=== PATIENT | female | born 1975 | race Caucasian/White ===

== ENCOUNTER → 2018-01-07 | Outpatient (CLI) | payer BC ==
[~2018-01-07] MED LIST: ACET-789 PO; ACYC400T PO; ACYSUS PO; ASPI-816 PO; ATOR10TA66 PO; CHOL200041 PO; CITA20TA4 PO; CRANBERRY + VI1 EACH PO; DESV50TA PO; Docusate Sodium PO; FERR-57 PO; FRS325T PO; GABA-488 PO; Hydrocodone Bit/Acetaminophen PO; IBP600T1 PO; Ibuprofen PO; LVT.1T PO; ONDN4T PO; PREN1TAB39 PO; SELE200T11 PO; SERT25TA PO; Simethicone PO; VENL150T4 PO
--- NOTE | 2018-01-07 12:46 | Diagnostic Imaging Report ---
INDICATION: Right foot pain. Time of exam 12:50 PM 3 views of the right foot were obtained. The metatarsals are intact. No periosteal reaction or stress reaction is seen. Phalanges appear intact. Midfoot and hindfoot are unremarkable. No calcaneal spur is seen. IMPRESSION: No acute bony abnormality is detected. Report was faxed to office Tabitha Walls, nurse practitioner by drew at 12:44p.m. Dictated by: Dictated on workstation # [id number]
== END ==
LOC: RAD 11:20
PROVIDERS: ATTEND Nurse Practitioner Family
DX: M79.671 Pain in right foot (principal)
CPT/HCPCS: 73630

== ENCOUNTER → 2018-02-22 | Outpatient (CLI) | payer BC ==
--- NOTE | 2018-02-22 13:52 | Diagnostic Imaging Report ---
INDICATION: Routine screening. COMPARISON: No prior mammograms are available for comparison. This is a baseline study. TECHNIQUE: 2D and 3D bilateral screening mammography was performed with CAD. FINDINGS: Both breasts are heterogeneously dense, limiting the sensitivity of mammography. The right breast is unremarkable. There is a focal density in the central left breast on the CC view at the nipple line. There is also a density appearing posteriorly at the nipple line on MLO view, best seen on tomographic image 13 of the MLO view. Additional views are recommended. No suspicious calcifications are seen. The axillae are unremarkable. IMPRESSION: Left breast densities. Additional views are recommended for further evaluation. ACR BI-RADS Category 0: Incomplete. (Needs additional imaging evaluation). Result letter will be mailed to the patient. Note: At least 10% of breast cancer is not imaged by mammography. Dictated by: Dictated on workstation # [id number]
== END ==
LOC: RAD 09:17
PROVIDERS: ATTEND Family Medicine
DX: Z12.31 Encounter for screening mammogram for malignant neoplasm of breast (principal); R92.8 Other abnormal and inconclusive findings on diagnostic imaging of breast
CPT/HCPCS: 77067

== ENCOUNTER → 2018-03-16 | Outpatient (CLI) | payer BC ==
--- NOTE | 2018-03-16 19:07 | Diagnostic Imaging Report ---
INDICATION: Left breast density. Patient presents for additional views. COMPARISON: Correlation is made with recent screening study from 02/22/2018. TECHNIQUE: Unilateral left 2D and 3D diagnostic mammography was performed including conventional 90 degree lateral view as well as spot compression CC and ML views. The current study was also evaluated with a computer-aided detection (CAD) system. FINDINGS: There is some mild residual nodularity in the central left breast on the CC view just lateral to the nipple line. This appears to be slightly superiorly located on the tomographic images. No definite corresponding density on the ML or spot compression ML views is seen. No suspicious calcifications are identified. IMPRESSION: Mild residual nodularity in the left breast on the CC view, 8 cm from the nipple. Further evaluation of the upper-outer left breast with ultrasound is recommended and will be performed today. ACR BI-RADS Category 0: Incomplete. (Needs additional imaging evaluation). Result letter will be mailed to the patient. Note: At least 10% of breast cancer is not imaged by mammography. Dictated by: Dictated on workstation # [id number]
--- NOTE | 2018-03-16 19:20 | Diagnostic Imaging Report ---
INDICATION: Left breast density. This study is performed for further evaluation. Correlation is made with diagnostic mammogram from earlier the same day and screening mammogram from 02/22/2018. FINDINGS: Sonographic interrogation of the left breast from 12 to 3 o'clock was performed. There is a tiny cyst at the 2 o'clock location 8 cm from the nipple approximately 2 mm x 3 mm in size. No solid mass is seen. No other sonographic abnormality is seen. IMPRESSION: Small cyst at the 2 o'clock location in the left breast 8 cm from the nipple. It is unlikely this accounts for the density noted mammographically. Mammographic density most likely represented superimposed tissue. The patient may return to routine annual screening mammography. ACR BI-RADS Category 2: Benign findings. Dictated by: Dictated on workstation # [id number]
== END ==
LOC: RAD 13:35
PROVIDERS: ATTEND Family Medicine
DX: N60.02 Solitary cyst of left breast (principal)
CPT/HCPCS: 76642

== ENCOUNTER → 2019-02-27 | Outpatient (CLI) | payer BC, MEDICAID ==
--- NOTE | 2019-02-27 08:52 | Diagnostic Imaging Report ---
INDICATION: Routine screening. COMPARISON: 02/22/2018. TECHNIQUE: 2D and 3D bilateral screening mammography was performed with CAD. FINDINGS: Both breasts are heterogeneously dense, limiting the sensitivity of mammography. The parenchymal pattern is stable. No mass or malignant appearing microcalcifications are seen. The axillae are unremarkable. IMPRESSION: No mammographic features suspicious for malignancy are identified. ACR BI-RADS Category 1: Negative. Result letter will be mailed to the patient. Note: At least 10% of breast cancer is not imaged by mammography. Dictated by: Dictated on workstation # [id number]
== END ==
LOC: RAD 07:55
PROVIDERS: ATTEND Family Medicine
DX: Z12.31 Encounter for screening mammogram for malignant neoplasm of breast (principal)
CPT/HCPCS: 77067

== ENCOUNTER → 2019-09-28 | Outpatient (CLI) | payer MEDICAID ==
--- NOTE | 2019-09-28 14:58 | Diagnostic Imaging Report ---
PROCEDURE: US Non-OB pelvis comp/trans. TECHNIQUE: Multiple realtime grayscale images were obtained of the pelvis in various projections, endovaginally. Transabdominal imaging was also performed. INDICATION: Pelvic pain. Patient had prior left oophorectomy approximately 20 years ago. FINDINGS: Uterus is anteverted, measuring 7.6 x 4.1 x 5.3 cm. Endometrium is 8 mm in thickness. No myometrial mass is detected. Left ovary is surgically absent. Right ovary measures 4.2 x 2.2 x 2.8 cm. There is a cyst in the right ovary of approximately 1.9 cm in diameter. Arterial blood flow was somewhat difficult to detect with Doppler; however, venous flow appears unremarkable. The ovary, itself, does not appear to be significantly enlarged or have abnormal morphologic appearance. No free fluid is seen. IMPRESSION: Approximately 1.9 cm right ovarian cyst. Doppler evaluation of the right ovary is somewhat limited but no significant abnormal appearance of the right ovary is seen. Dictated by: Dictated on workstation # [id number]
== END ==
LOC: RAD 11:32
PROVIDERS: ATTEND Family Medicine
DX: N83.201 Unspecified ovarian cyst, right side (principal)
CPT/HCPCS: 76830; 76856

== ENCOUNTER → 2019-10-09 | Outpatient (CLI) | payer MEDICAID | LOC: RAD 12:20 | PROVIDERS: ATTEND Nurse Practitioner Family | DX: Z53.9 Procedure and treatment not carried out, unspecified reason (principal) ==

== ENCOUNTER → 2019-12-07 | Outpatient (CLI) | payer MEDICAID ==
--- NOTE | 2019-12-07 16:05 | Diagnostic Imaging Report ---
PROCEDURE: US Renal Bilateral. TECHNIQUE: Multiple real-time grayscale images were obtained over the kidneys in various projections bilaterally. INDICATION: Renal insufficiency. FINDINGS: Right kidney measures 9.2 x 5.2 x 5.6 cm and the left kidney measures 10.7 x 4.6 x 4.9 cm. Cortical thickness and echogenicity are normal. No calculi are seen. There is no hydronephrosis. Bilateral ureteral jets are visualized. IMPRESSION: Unremarkable renal ultrasound. Dictated by: Dictated on workstation # [id number]
== END ==
LOC: RAD 14:22
PROVIDERS: ATTEND Family Medicine
DX: N28.9 Disorder of kidney and ureter, unspecified (principal)
CPT/HCPCS: 76770

== ENCOUNTER → 2020-02-29 | Outpatient (CLI) | payer MEDICAID ==
--- NOTE | 2020-02-29 17:34 | Diagnostic Imaging Report ---
INDICATION: Screening. At this time there are no current complaints. EXAMINATION: Bilateral digital screening mammogram with CAD. 3D tomographic images were obtained and reviewed. The current study was also evaluated with a Computer Aided Detection (CAD) system. COMPARISON: This study was compared to the prior exams of 02/27/2019 and 02/22/2018. FINDINGS: The fibroglandular tissue in both breasts is heterogeneously dense. This does limit the sensitivity of this exam. Overall, there does not appear to have been any significant change when compared to the prior study. No primary or secondary sign of malignancy is noted. IMPRESSION: There is no radiographic evidence for malignancy. ACR BI-RADS Category 1: Negative. Result letter will be mailed to the patient. Note: At least 10% of breast cancer is not imaged by mammography. Dictated by: Dictated on workstation # [id number]
== END ==
LOC: RAD 11:15
PROVIDERS: ATTEND Family Medicine
DX: Z12.31 Encounter for screening mammogram for malignant neoplasm of breast (principal)
CPT/HCPCS: 77063; 77067

== ENCOUNTER → 2021-01-23 | Outpatient (CLI) | payer MEDICAID ==
--- NOTE | 2021-01-23 15:16 | Diagnostic Imaging Report ---
INDICATION: Left ankle pain. COMPARISON: None FINDINGS: 3 radiographic views of the left ankle were obtained. There is small extraosseous calcification adjacent to the distal tip of the medial malleolus. This may be on the basis of avulsion fracture, but is age-indeterminate. No other acute osseous abnormality is seen. Joint spaces are intact. No unexpected radiopaque foreign bodies are identified. IMPRESSION: 1. Possible avulsion injury to the medial malleolus. Correlation with point tenderness is recommended. Dictated by: Dictated on workstation # [id number]
== END ==
LOC: RAD
PROVIDERS: ATTEND Family Medicine
DX: M25.572 Pain in left ankle and joints of left foot (principal)
CPT/HCPCS: 73610

== ENCOUNTER → 2021-03-03 | Outpatient (CLI) | payer MEDICAID ==
--- NOTE | 2021-03-03 12:54 | Diagnostic Imaging Report ---
INDICATION: Routine screening. COMPARISON: 02/29/2020 and 02/27/2019. TECHNIQUE: 2D and 3D bilateral screening mammography was performed with CAD. FINDINGS: Both breasts are heterogeneously dense, limiting the sensitivity of mammography. The overall parenchymal pattern is stable. No mass or malignant-appearing microcalcifications are seen. The axillae are unremarkable. IMPRESSION: No mammographic features suspicious for malignancy are identified. ACR BI-RADS Category 1: Negative. Result letter will be mailed to the patient. Note: At least 10% of breast cancer is not imaged by mammography. Dictated by: Dictated on workstation # [id number]
== END ==
LOC: RAD 10:30
PROVIDERS: ATTEND Family Medicine
DX: Z12.31 Encounter for screening mammogram for malignant neoplasm of breast (principal)
CPT/HCPCS: 77063; 77067

== ENCOUNTER 2022-04-09 14:00 | Emergency (ER) | payer MEDICAID ==
[~2022-04-09] VITALS: Ht 160 cm; Wt 90.7 kg
[2022-04-09 15:42] LABS: BASOPHILS # (AUTO) 0.1 10^3/uL (0.0-0.1); BASOPHILS % (AUTO) 1 % (0-10); HEMOGLOBIN 13.3 g/dL (11.5-16.0); MONOCYTES # (AUTO) 0.5 10^3/uL (0.0-1.0)
[2022-04-09 15:44] LABS: EOSINOPHILS # (AUTO) 0.1 10^3/uL (0.0-0.3); EOSINOPHILS % (AUTO) 1 % (0-10); HEMATOCRIT 40 % (35-52); LYMPHOCYTES # (AUTO) 3.5 10^3/uL (1.0-4.0); LYMPHOCYTES % (AUTO) 38 % (12-44); MEAN CORPUSCULAR HEMOGLOBIN 31 pg (25-34); MEAN CORPUSCULAR HGB CONC 34 g/dL (32-36); MEAN CORPUSCULAR VOLUME 93 fL (80-99); MEAN PLATELET VOLUME 9.6 fL (9.0-12.2); MONOCYTES % (AUTO) 5 % (0-12); NEUTROPHILS # (AUTO) 5.2 10^3/uL (1.8-7.8); NEUTROPHILS % (AUTO) 55 % (42-75); PLATELET COUNT 484 10^3/uL (130-400); WHITE BLOOD COUNT 9.4 10^3/uL (4.3-11.0)
[2022-04-09 15:46] LABS: CHLORIDE 107 MMOL/L (98-107); POTASSIUM 3.5 MMOL/L (3.6-5.0); SODIUM 139 MMOL/L (135-145)
[2022-04-09 15:47] LABS: CALCIUM 10.1 MG/DL (8.5-10.1)
[2022-04-09 15:48] LABS: GLUCOSE 149 MG/DL (70-105); TOTAL PROTEIN 8.5 GM/DL (6.4-8.2)
[2022-04-09 15:50] LABS: BILIRUBIN,TOTAL 0.2 MG/DL (0.1-1.0); CARBON DIOXIDE 24 MMOL/L (21-32)
[2022-04-09 15:52] LABS: ALKALINE PHOSPHATASE 45 U/L (40-136); CREATININE SERUM 1.35 MG/DL (0.60-1.30); GFR ESTIMATED 50
[2022-04-09 15:53] LABS: BUN/CREATININE RATIO 10
[2022-04-09 15:55] LABS: ALANINE AMINOTRANSFERASE 29 U/L (0-55)
--- NOTE | 2022-04-09 16:32 | Diagnostic Imaging Report ---
INDICATION: Weakness, migraines, and tremors. TECHNIQUE: Multiple contiguous axial images were obtained through the brain without the use of intravenous contrast. Auto Exposure Controls were utilized during the CT exam to meet ALARA standards for radiation dose reduction. Comparison made with brain MRI of 11/09/[address] of 06/28/2013. FINDINGS: There is again noted to be a small hyperdense cyst in the anterior portion of the third ventricle, compatible with colloid cyst. This measured about 6 mm. There does not appear to be evidence of ventricular dilatation at this time. Ventricles are stable compared to the previous MRI study. There is no subdural or epidural collection. There is no acute intraparenchymal abnormality of the brain. There is a persistent cavum septum pellucidum. Calvarial windows are unremarkable. IMPRESSION: No acute intracranial abnormality. Small probable colloid cyst in the third ventricle anteriorly with no significant ventricular dilatation. The findings have not changed compared to previous CT and MRI studies. Dictated by: Dictated on workstation # [id number]
--- NOTE | 2022-04-09 17:12 | ED General ---
General Chief Complaint: Head/Cervical Problems Stated Complaint: MIGRAINE | NAUSEA | HX OF COLLOID CYST Nursing Triage Note: PT PRESENTS TO ED VIA POV FROM WORK WITH COMPLAINTS OF MIGRAINE, DIFFICULTY WITH AMBULATION, AND BODY TREMORS. PT STATES SHE WOKE UP WITH THIS AM WITH A LORA AND IT PROGRESSIVELY GOT WORSE THROUGHOUT THE DAY. PT REPORTS NAUSEA. PT STATES SHE HAD ACCUPUNCTURE AND NECK ADJUSTMENTS AT WORK WHEN SHE STARTED GETTING WORSE BUT HAS NOT FELT IMPROVEMENT. PT REPORTS HER S/S SEEM TO RESOLVE WHEN SHE IS SITTING OR LAYING DOWN BUT WORSE WITH AMBULATION. Source of Information: Patient Exam Limitations: No Limitations (MIGUEL STONE APRN) History of Present Illness Date Seen by Provider: Apr 09, 2022 Time Seen by Provider: 17:05 Initial Comments Patient is a 46-year-old female who presents to the emergency department for evaluation of a constellation of symptoms including migraine, difficulty ambulating, diffuse body shaking, and bilateral lower extremity weakness. She states she has had some of the symptoms for a few weeks but others began this morning. She states she has also had some nausea without emesis. She currently works at a chiropractor's office. She states she was adjusted twice today at the office and also had some acupuncture done. This did not improve the symptoms. She states her shakiness and weakness seems to be worse when she is standing or walking. She has not fallen. She denies any laterality to her symptoms. Denies any vision loss, facial asymmetry, difficulty speaking or swallowing, drooling. 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 She states she does have an appointment with her PCP next week as well as an appointment with her neurologist early next year. These appointments were made in the last few weeks when the symptoms have been present. She has not seen a medical provider outside of her chiropractor for the symptoms since they began. She denies any fever or flulike symptoms. She denies any chest pain or significant shortness of air. No recent trauma. (MIGUEL STONE APRN) Allergies and Home Medications Allergies Coded Allergies: penicillin G (Verified Allergy, Unknown, 09/02/07) Patient Home Medication List Home Medication List Reviewed: Yes (MIGUEL STONE APRN) Acyclovir (Zovirax) 400 Mg Tablet, 400 MG PO DAILY, (Reported) Entered as Reported by: VIGNESH OLIVO on 06/28/13928 Desvenlafaxine Succinate (Pristiq) 50 Mg Tab.sr.24h, 50 MG PO EVERY OTHER DAY, (Reported) Entered as Reported by: KAITLYNN ROSA on 03/15/142013 Ferrous Sulfate (Feosol Tab) 325 Mg Tab, 325 MG PO BID WITH MEALS Prescribed by: SHIRA LARA on 03/16/14949 Levothyroxine Sodium (Levothyroxine 100 Mcg Tab) 100 Mcg Tablet, 100 MCG PO DAILY, (Reported) Entered as Reported by: VIGNESH OLIVO on 06/28/13928 Vits W-Ca,Fe,Fa(<1MG) () 1 Each Tablet, 1 EACH PO DAILY, (Reported) Entered as Reported by: IRA JOSEPH on 02/25/112206 Sertraline Hcl (Zoloft) 25 Mg Tablet, 50 MG PO DAILY, (Reported) Entered as Reported by: KAITLYNN ROSA on 03/15/142013 Vit C/Vitamin E Acetate/Cranb (Cranberry + Vit C Softgel) 1 Each Capsule, 1 EACH PO DAILY, (Reported) Entered as Reported by: IRA JOSEPH on 02/25/112206 [Docusate Sodium] 100 MG CAP, 100 MG PO BID PRN for CONSTIPATION Prescribed by: SHIRA LARA on 03/16/14 09 [Hydrocodone Bit/Acetaminophen] 1 EA TABLET, 1 EA PO Q6H PRN for PAIN Prescribed by: SHIRA LARA on 03/16/1450 [Ibuprofen] 600 MG TAB, 600 MG PO Q6H PRN for PAIN Prescribed by: SHIRA LARA on 03/16/14 0950 [Simethicone] 80 MG CHEW, 40 MG PO TID PRN for INDIGESTION Prescribed by: SHIRA LARA on 03/16/14949 Review of Systems Review of Systems Constitutional: see HPI, weakness EENTM: no symptoms reported Respiratory: no symptoms reported Cardiovascular: no symptoms reported Gastrointestinal: see HPI, nausea Genitourinary: no symptoms reported Musculoskeletal: see HPI, muscle weakness Skin: no symptoms reported Psychiatric/Neurological: See HPI, Headache, Weakness Hematologic/Lymphatic: No Symptoms Reported Immunological/Allergic: no symptoms reported (MIGUEL STONE APRN) Past Ahsrimt-Blkmdr-Clicqp Hx Patient Social History Tobacco Use?: No Substance use?: No Alcohol Use?: Yes Alcohol Frequency: Daily Pt feels they are or have been: No (MIGUEL STONE APRN) Immunizations Up To Date First/Initial COVID19 Vaccinat: YES Second COVID19 Vaccination Dylan: YES COVID19 Vaccine Wealth Management Advisor: PFIZER (MIGUEL STONE APRN) Past Medical History Surgery/Hospitalization HX: 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 oz. 84.196716cl; 35.00 BMI Method:Stated General Appearance: No Apparent Distress, WD/WN HEENT: PERRL/EOMI, TMs Normal, Normal ENT Inspection, Pharynx Normal Neck: Normal Inspection, Non Tender, Supple Respiratory: Chest Non Tender, Lungs Clear, Normal Breath Sounds, No Respiratory Distress Cardiovascular: Normal Peripheral Pulses Gastrointestinal: Non Tender, Soft Extremity: Non Tender, No Calf Tenderness Neurologic/Psychiatric: Oriented x3, No Motor/Sensory Deficits, Normal Mood/Affect, digital marketing officer II-XII Norm as Tested Skin: Normal Color, Warm/Dry (MIGUEL STONE APRN) Progress/Results/Core Measures Suspected Sepsis SIRS Temperature: Pulse: 107 Respiratory Rate: 18 Laboratory Tests 04/09/22 15:25: White Blood Count 9.4 Blood Pressure 162 /83 Mean: 109 Laboratory Tests 04/09/22 15:25: Creatinine 1.35H, Platelet Count 484H, Total Bilirubin 0.2 (MIGUEL STONE APRN) Results/Orders Lab Results Laboratory Tests Test 04/09/22 15:25 Range/Units White Blood Count 9.4 4.3-11.0 10^3/uL Red Blood Count 4.25 3.80-5.11 10^6/uL Hemoglobin 13.3 11.5-16.0 g/dL Hematocrit 40 35-52 % Mean Corpuscular Volume 93 80-99 fL Mean Corpuscular Hemoglobin 31 25-34 pg Mean Corpuscular Hemoglobin Concent 34 32-36 g/dL Red Cell Distribution Width 13.3 10.0-14.5 % Platelet Count 484 H 130-400 10^3/uL Mean Platelet Volume 9.6 9.0-12.2 fL Immature Granulocyte % (Auto) 0 % Neutrophils (%) (Auto) 55 42-75 % Lymphocytes (%) (Auto) 38 12-44 % Monocytes (%) (Auto) 5 0-12 % Eosinophils (%) (Auto) 1 0-10 % Basophils (%) (Auto) 1 0-10 % Neutrophils # (Auto) 5.2 1.8-7.8 10^3/uL Lymphocytes # (Auto) 3.5 1.0-4.0 10^3/uL Monocytes # (Auto) 0.5 0.0-1.0 10^3/uL Eosinophils # (Auto) 0.1 0.0-0.3 10^3/uL Basophils # (Auto) 0.1 0.0-0.1 10^3/uL Immature Granulocyte # (Auto) 0.0 0.0-0.1 10^3/uL Percent Immature Platelet Fraction 1.9 0.0-7.6 % Sodium Level 139 135-145 MMOL/L Potassium Level 3.5 L 3.6-5.0 MMOL/L Chloride Level 107 98-107 MMOL/L Carbon Dioxide Level 24 21-32 MMOL/L Anion Gap 8 5-14 MMOL/L Blood Urea Nitrogen 14 7-18 MG/DL Creatinine 1.35 H 0.60-1.30 MG/DL Estimat Glomerular Filtration Rate 50 BUN/Creatinine Ratio 10 Glucose Level 149 H 70-105 MG/DL Calcium Level 10.1 8.5-10.1 MG/DL Corrected Calcium 8.5-10.1 MG/DL Total Bilirubin 0.2 0.1-1.0 MG/DL Aspartate Amino Transf (AST/SGOT) 28 5-34 U/L Alanine Aminotransferase (ALT/SGPT) 29 0-55 U/L Alkaline Phosphatase 45 40-136 U/L Total Protein 8.5 H 6.4-8.2 GM/DL Albumin 5.0 H 3.2-4.5 GM/DL Thyroid Stimulating Hormone (TSH) 2.70 0.35-4.94 UIU/ML (ANTIONE ROCKWELL MD) Vital Signs/I&O 04/09/22 04/09/22 14:09 17:17 Temp 36.7 Pulse 107 Resp 18 B/P (MAP) 162/83 (109) 117/78 (ANTIONE ROCKWELL MD) Vital Signs/I&O Capillary Refill : Less Than 3 Seconds (MIGUEL STONE APRN) Blood Pressure Mean: 109 Progress Note : Progress Note Patient is nontoxic and well-hydrated on exam. No focal neurologic deficits appreciated. Patient was ambulatory to the exam room without issue. NIH is 0. She is able to answer all questions appropriately. She is awake alert and oriented x4. Extraocular movements are intact. Pupils reground reactive to light. Cranial nerves II through XII grossly intact. No significant asymmetrical weakness noted in any of the 4 extremities. No significant paresthesias or numbness appreciated. Patient presented with an outpatient order for a head CT with and without contrast filled out by her chiropractor. I explained that a contrasted head CT is not indicated in this case but that a noncontrasted head CT would be appropriate to rule out any intracranial abnormality including an enlargement of her colloid cyst. I explained that we sometimes will do a CTA of the head neck if we are concerned of any vessel stenosis or occlusion but at this time there are no symptoms that are concerning for that process. Laboratory evaluation is very unremarkable. Specifically there is no significant metabolic derangements. No elevated white blood cell count that would raise suspicion for infectious process. EKG obtained which is without acute ischemic change or arrhythmia. CT of the head shows third ventricular cyst of unchanged size from prior studies approximately 7 years ago. Had a lengthy discussion with patient that there appears to be no acutely emergent process mediating her symptoms. Patient did seem to have some frustration at the lack of definitive diagnosis. I explained that close follow- up with her PCP and/or neurologist would likely help in giving her a more definite diagnosis. I also encouraged her to return to the emergency department for any urgent symptomology. Patient verbalized understanding. (MIGUEL STONE APRN) Departure Impression Primary Impression: Lower extremity weakness Qualified Codes: R29.898 - Other symptoms and signs involving the musculoskeletal system Additional Impressions: Near syncope Colloid cyst of third ventricle Disposition: HOME, SELF-CARE Condition: Stable Departure-Patient Inst. Decision time for Depature: 17:00 (MIGUEL STONE APRN) Referrals: SALVADOR CONTRERAS DO (PCP/Family) Primary Care Physician Patient Instructions: Weakness ED ATTENDING PHYSICIAN NOTE: I was physically present as attending physician in the emergency department during the care of this patient, but I was not directly involved in the decision making or delivery of care for this patient. (ANTIONE ROCKWELL MD) Copy Copies To 1: SALVADOR CONTRERAS JASON APRN Apr 09, 2022 17:12 ANTIONE ROCKWELL MD Apr 11, 2022 07:25
[2022-04-09 17:17] VITALS: BP 117/78
== END 2022-04-09 17:19 | disposition home or self-care (01) ==
LOC: EDUNIT# 14:00 → ER 14:04
DX: R53.1 Weakness (principal); R55 Syncope and collapse; G93.0 Cerebral cysts
CPT/HCPCS: 36415; 70450; 80053; 84443; 85025; 93005

== ENCOUNTER → 2022-04-22 | Outpatient (CLI) | payer MEDICAID ==
--- NOTE | 2022-04-22 14:56 | Diagnostic Imaging Report ---
PROCEDURE: MR imaging of the brain without contrast. TECHNIQUE: Multiplanar, multisequence MR imaging of the brain was performed without contrast. INDICATION: Leg and hand tremors as well as headache and face tingling. COMPARISON: Correlation is made with prior MRI from 11/09/2015. FINDINGS: Ventricular size and sulcal pattern appears stable. There is no diffusion restriction. The normal expected flow-voids within the carotid siphons are seen. Small colloid cyst appears stable. There is no evidence of acute intracranial hemorrhage. Corpus callosum is unremarkable. The sella and parasellar structures are unremarkable. IMPRESSION: Stable noncontrast MRI of the brain. No acute feature is detected. Dictated by: Dictated on workstation # [id number]
--- NOTE | 2022-04-22 20:16 | Diagnostic Imaging Report ---
CLINICAL INDICATION: Patient having leg and hand tremors. Patient has headaches and face tingles, memory loss. EXAM: MRI of the cervical spine performed without IV contrast. Sequences include sagittal T2, sagittal T1, sagittal T2 fat-sat, and axial T2. COMPARISON: MRI of the cervical spine without contrast dated 11/09/2015. FINDINGS: There is no acute cervical spine fracture or dislocation. There is no significant Modic degenerative signal changes. Limited visualization of posterior fossa is unremarkable. Cervical spinal cord has normal cord caliber with no abnormal signal. There is no significant paraspinal soft tissue abnormality. C1-C2: There are degenerative spurs involving the atlantoodontoid interval anteriorly. There is no significant central canal stenosis. C2-C3: Unremarkable. C3-C4: There is development of small anterior disk bulge. There is no significant central spinal canal or neural foramen narrowing. C4-C5: There is progression of a small anterior disk bulge. There is no significant central spinal canal or neural foramen narrowing. C5-C6: There is interval progression of a mild diffuse disk bulge. There is interval progression of mild central canal narrowing. There is no significant neural foramen narrowing. C6-C7: There is interval progression of a small posterior disk extrusion/herniation. There is progression of minimal central canal narrowing. There is no significant neural foramen narrowing. C7-T1: Unremarkable. IMPRESSION: 1: There is no acute cervical spine fracture or dislocation. 2: There is slight progression of cervical spine degenerative disease, as described above. There is no significant central canal or neural foramen narrowing. Dictated by: Dictated on workstation # [id number]
--- NOTE | 2022-04-22 21:58 | Diagnostic Imaging Report ---
INDICATION: Routine screening. COMPARISON: Prior mammograms from 03/03/2021 and 02/29/2020. EXAMINATION: 2D and 3D bilateral screening mammography was performed with CAD. The current study was also evaluated with a Computer Aided Detection (CAD) system. FINDINGS: Both breasts are heterogeneously dense, limiting the sensitivity of mammography. The parenchymal pattern appears stable. No mass or malignant-appearing microcalcifications are seen. Axillae are unremarkable. IMPRESSION: No mammographic features suspicious for malignancy are identified. ACR BI-RADS Category 1: Negative. Result letter will be mailed to the patient. Note: At least 10% of breast cancer is not imaged by mammography. Dictated by: Dictated on workstation # [id number]
== END ==
LOC: RAD 14:00
PROVIDERS: ATTEND Family Medicine
DX: Z12.31 Encounter for screening mammogram for malignant neoplasm of breast (principal); M48.02 Spinal stenosis, cervical region; M50.21 Other cervical disc displacement, high cervical region; M47.812 Spondylosis without myelopathy or radiculopathy, cervical region; R25.1 Tremor, unspecified; R26.9 Unspecified abnormalities of gait and mobility; R20.0 Anesthesia of skin; G51.4 Facial myokymia; R41.3 Other amnesia
CPT/HCPCS: 70551; 72141; 77063; 77067

== ENCOUNTER 2022-08-20 19:23 | Outpatient (CLI) | payer MEDICAID | END 2022-08-21 06:29 | disposition home or self-care (01) | LOC: SLEEP 19:23 | PROVIDERS: ATTEND Psychiatry & Neurology Neurology | DX: G47.33 Obstructive sleep apnea (adult) (pediatric) (principal); G47.10 Hypersomnia, unspecified; I10 Essential (primary) hypertension; R06.83 Snoring; F39 Unspecified mood [affective] disorder; R51.9 Headache, unspecified | CPT/HCPCS: 95810 ==

== ENCOUNTER 2023-02-03 05:37 | Outpatient (CLI) | payer MEDICAID ==
[~2023-02-03] VITALS: Ht 162.6 cm; Wt 90.7 kg
[2023-02-03] MEDS ORDERED: FENO134C21 PO (11:58)
[2023-02-03] MEDS ORDERED: OMEG100032 PO (11:58)
[2023-02-03] MEDS ORDERED: LEVO137C4 PO (11:58)
[2023-02-03] MEDS ORDERED: TOPI200T8 PO (11:58)
[2023-02-03] MEDS ORDERED: MAGN400T39 PO (11:58)
[2023-02-03] MEDS ORDERED: BREX3TAB PO (11:58)
[2023-02-03] MEDS ORDERED: AMIT50TA3 PO (11:58)
[2023-02-03] MEDS ORDERED: PANT40TA52 PO (11:58)
== END 2023-02-03 12:03 | disposition home or self-care (01) ==
LOC: PREOP 05:37
PROVIDERS: ATTEND Surgery
DX: Z01.818 Encounter for other preprocedural examination (principal)

== ENCOUNTER 2023-02-10 14:53 | Outpatient (RCR) | payer MEDICAID ==
[~2023-02-10 14:53] MED LIST changes: +AMIT50TA3 PO; +BREX3TAB PO; +FENO134C21 PO; +LEVO137C4 PO; +MAGN400T39 PO; +OMEG100032 PO; +PANT40TA52 PO; +TOPI200T8 PO
[2023-02-10 16:23] LABS: BASOPHILS # (AUTO) 0.1 10^3/uL (0.0-0.1); BASOPHILS % (AUTO) 1 % (0-10); EOSINOPHILS # (AUTO) 0.2 10^3/uL (0.0-0.3); EOSINOPHILS % (AUTO) 2 % (0-10); HEMATOCRIT 37 % (35-52); HEMOGLOBIN 12.4 g/dL (11.5-16.0); LYMPHOCYTES # (AUTO) 4.3 10^3/uL (1.0-4.0); LYMPHOCYTES % (AUTO) 43 % (12-44); MEAN CORPUSCULAR HEMOGLOBIN 32 pg (25-34); MEAN CORPUSCULAR HGB CONC 33 g/dL (32-36); MEAN CORPUSCULAR VOLUME 95 fL (80-99); MEAN PLATELET VOLUME 9.6 fL (9.0-12.2); MONOCYTES # (AUTO) 0.7 10^3/uL (0.0-1.0); MONOCYTES % (AUTO) 7 % (0-12); NEUTROPHILS # (AUTO) 4.8 10^3/uL (1.8-7.8); NEUTROPHILS % (AUTO) 48 % (42-75); PLATELET COUNT 467 10^3/uL (130-400)
== END 2023-03-02 | disposition home or self-care (01) ==
LOC: ONC 14:53
PROVIDERS: ATTEND Internal Medicine Hematology & Oncology
DX: D75.839 Thrombocytosis, unspecified (principal); E66.9 Obesity, unspecified; E03.9 Hypothyroidism, unspecified; F10.10 Alcohol abuse, uncomplicated
CPT/HCPCS: 82728; 83540; 83550; 85025; 99214

== ENCOUNTER 2023-02-16 07:47 | Day surgery (SDC) | payer MEDICAID ==
[~2023-02-16] VITALS: Ht 162.6 cm; Wt 90.7 kg
[2023-02-16] MEDS ORDERED: LACTATED RINGERS 1,000 ML 1,000 ML IV STA (07:49)
[2023-02-16] MEDS ORDERED: HURRICAINE EXT TUBE (BENZOCAINE) XX PRN (08:00)
[2023-02-16 08:10] VITALS: BP 130/75
[2023-02-16] MEDS ORDERED: MIDAZOLAM INJ 2 MG/2 ML VIAL ONE (08:41)
--- NOTE | 2023-02-16 09:00 | Progress Note-Post Operative ---
Post-Operative Progess Note Surgeon (s)/Remotely Operated Vehicle (s) Surgeon CAROLIN VILLAREAL DO Remotely Operated Vehicle: n/a Pre-Operative Diagnosis family hx of colon cancer, GERD w/ esophagits Post-Operative Diagnosis duodenitis, colon polyp Procedure & Operative Findings Date of Procedure 02/16/23 Procedure Performed/Findings colonoscopy w/ hot biopsy polypectomy x1 EGD w/ biopsies Anesthesia Type per STEVEDORING SUPERINTENDENT Estimated Blood Loss Estimated blood loss (mL): none Specimens/Packing Specimens Removed colon polyp, duodenum bx x1 antrum bx x1 GE junciton bx x1 CAROLIN VILLAREAL DO Feb 16, 2023 09:00
[2023-02-16] MEDS ORDERED: proPOfol INJECTION 200 MG/20 ML VIAL IV ONE (09:24)
[2023-02-16 09:33] VITALS: BP 99/57
--- NOTE | 2023-02-16 09:33 | Discharge Inst-Simple/Standard ---
Discharge Inst-Standard Patient Instructions/Follow Up Plan of Care/Instructions/FU: 2 weeks [place] Activity as Tolerated: Yes Discharge Diet: Regular Diet CAROLIN VILLAREAL DO Feb 16, 2023 09:33
[2023-02-16 09:35] VITALS: BP 104/62
[2023-02-16 10:26] VITALS: BP 104/62
--- NOTE | 2023-02-16 11:18 | Anesthesia-General Post-Op ---
MAC Patient Condition Mental Status/LOC: Same as Preop Cardiovascular: Satisfactory Nausea/Vomiting: Absent Respiratory: Satisfactory Pain: Controlled Complications: Absent Post Op Complications Complications None Follow Up Care/Instructions Patient Instructions None needed. Anesthesiology Discharge Order Discharge Order Patient is doing well, no complaints, stable vital signs, no apparent adverse anesthesia problems. No complications reported per nursing. ISAEL LARIOS CRNA Feb 16, 2023 11:18
--- NOTE | 2023-02-16 16:19 | OPERATIVE REPORT ---
DATE OF SERVICE: 02/16/2023 PREOPERATIVE DIAGNOSIS: Family history of colon cancer, GERD with esophagitis. POSTOPERATIVE DIAGNOSES: Duodenitis colon polyp. PROCEDURE: Colonoscopy with hot biopsy polypectomy x1. EGD with biopsies. SURGEON: Carolin Hubbard DO ANESTHESIA: Per H[employer]ORIC CLOTHING AND COSTUME MAKER. ESTIMATED BLOOD LOSS: None. COMPLICATIONS: None. INDICATIONS: The patient is a 47-year-old female, needing screening colonoscopy and also having GERD. She understands risks and benefits of procedures and wished to proceed. Consent was signed in chart. DESCRIPTION OF PROCEDURE: The patient was taken to endoscopy suite, placed in left lateral recumbent position. Timeout was performed. Scope was inserted in the mouth, down the esophagus, stomach and the duodenum without difficulty. Some areas of erythematous changes, which the duodenum consistent with some slight duodenitis. Biopsy in the duodenum was obtained. Scope was slowly retracted back into stomach where it was further insufflated. No polyps, masses or ulcerations. Biopsy of the antrum was obtained. Scope was retroflexed noting no other pathology. Scope was returned to its normal position, slowly withdrawn until distal esophagus and biopsy of GE junction was obtained. No polyps, masses or ulcerations. Scope was slowly retracted back until completely removed. Digital rectal exam was performed. No palpable polyps, masses or ulcerations. Scope was inserted in the rectum, advanced all the way to the cecum with minimal difficulty. Prep was adequate. Scope was slowly retracted back. No polyps, masses or ulcerations in the cecum, ascending, transverse, descending colon. In the sigmoid colon, small polyp was present, which hot biopsy polypectomy was performed. Scope was continuously retracted back tend to be retroflexed, but unable due to the rectum being more narrow. Scope was then inserted and retracted multiple times, noting no other pathology. Scope was slowly retracted back until completely removed. The patient tolerated the procedure well, no complications, taken to recovery room in stable condition. RECOMMENDATIONS: The patient will need repeat colonoscopy in 5 years. The patient will continue on Protonix. Await biopsy results. Further recommendation pending biopsy results and symptoms. Job ID: [id number] DocumentID: [id number] Dictated Date: 02/16/2023 09:34:12 Electric Relay Tester Date: 02/16/2023 16:18:00 Dictated By: CAROLIN HUBBARD DO
== END 2023-02-16 10:26 | disposition home or self-care (01) ==
LOC: ENDO 07:47
PROVIDERS: ATTEND Surgery
DX: K21.00 Gastro-esophageal reflux disease with esophagitis, without bleeding (principal); D12.5 Benign neoplasm of sigmoid colon; K29.80 Duodenitis without bleeding; K63.89 Other specified diseases of intestine; K29.50 Unspecified chronic gastritis without bleeding; K31.89 Other diseases of stomach and duodenum; Z80.0 Family history of malignant neoplasm of digestive organs; Z83.719 Family history of colon polyps, unspecified
CPT/HCPCS: 84703; 88305; 88342

== ENCOUNTER 2023-03-31 15:02 | Outpatient (RCR) | payer MEDICAID ==
[2023-03-31 16:00] LABS: BASOPHILS % (AUTO) 0 % (0-10); EOSINOPHILS # (AUTO) 0.1 10^3/uL (0.0-0.3); EOSINOPHILS % (AUTO) 1 % (0-10); HEMATOCRIT 42 % (35-52); HEMOGLOBIN 13.5 g/dL (11.5-16.0); LYMPHOCYTES % (AUTO) 46 % (12-44); MEAN CORPUSCULAR HEMOGLOBIN 31 pg (25-34); MEAN CORPUSCULAR HGB CONC 33 g/dL (32-36); MEAN CORPUSCULAR VOLUME 97 fL (80-99); MEAN PLATELET VOLUME 9.3 fL (9.0-12.2); MONOCYTES # (AUTO) 0.6 X 10^3 (0.0-1.0); MONOCYTES % (AUTO) 5 % (0-12); NEUTROPHILS # (AUTO) 6.3 X 10^3 (1.8-7.8); NEUTROPHILS % (AUTO) 48 % (42-75); PLATELET COUNT 596 10^3/uL (130-400); WHITE BLOOD COUNT 13.2 10^3/uL (4.3-11.0)
[2023-03-31 16:19] LABS: ALANINE AMINOTRANSFERASE 27 U/L (0-55); ALBUMIN 5.1 GM/DL (3.2-4.5); ALKALINE PHOSPHATASE 52 U/L (40-136); BILIRUBIN,TOTAL 0.3 MG/DL (0.1-1.0); BUN/CREATININE RATIO 17; CALCIUM 9.8 MG/DL (8.5-10.1); CARBON DIOXIDE 21 MMOL/L (21-32); CHLORIDE 106 MMOL/L (98-107); CREATININE SERUM 1.12 MG/DL (0.60-1.30); GFR ESTIMATED 62; GLUCOSE 94 MG/DL (70-105); POTASSIUM 3.5 MMOL/L (3.6-5.0); SODIUM 138 MMOL/L (135-145); TOTAL PROTEIN 8.9 GM/DL (6.4-8.2)
== END 2023-04-01 ==
LOC: ONC 15:02
PROVIDERS: ATTEND Internal Medicine Hematology & Oncology
DX: D75.839 Thrombocytosis, unspecified (principal); E66.9 Obesity, unspecified; E03.9 Hypothyroidism, unspecified
CPT/HCPCS: 36415; 80053; 82728; 83540; 83550; 85025; 85652; 99214